=== PATIENT | male | born 1950 | race Asian ===

== ENCOUNTER → 2022-12-17 | Outpatient (CLI) | payer MEDICARE, OTHER | END | disposition home or self-care (01) | LOC: RADMN 15:09 | PROVIDERS: ATTEND Physical Medicine & Rehabilitation Spinal Cord Injury Medicine | DX: M47.27 Other spondylosis with radiculopathy, lumbosacral region (principal); I65.23 Occlusion and stenosis of bilateral carotid arteries; M48.02 Spinal stenosis, cervical region; M25.78 Osteophyte, vertebrae; M47.22 Other spondylosis with radiculopathy, cervical region; M50.122 Cervical disc disorder at C5-C6 level with radiculopathy; M50.123 Cervical disc disorder at C6-C7 level with radiculopathy; M46.1 Sacroiliitis, not elsewhere classified; M48.07 Spinal stenosis, lumbosacral region; I70.0 Atherosclerosis of aorta | CPT/HCPCS: 72040; 72100 ==